=== PATIENT | male | born 1935 | race Caucasian/White ===

== ENCOUNTER → 2020-01-18 11:31 | Outpatient (CLI) | payer MEDICARE, OTHER, SELFPAY ==
--- NOTE | 2020-01-18 | DI.CT.S_ITS ---
PROCEDURE: CT ABDOMEN PELVIS WO/W CON INDICATIONS: GROSS HEMATURIA TECHNIQUE: Optional 5 mm thick noncontrast images acquired from the diaphragm to the symphysis pubis. After the administration of intravenous contrast, 5 mm thick images acquired from the diaphragm to the symphysis pubis after a 10-minute delay. 2 mm thick coronal and sagittal reformats were then performed of the kidneys and ureters. For radiation dose reduction, the following was used: automated exposure control, adjustment of mA and/or kV according to patient size. COMPARISON: None. FINDINGS: Image quality: Excellent. Lung bases: Lung bases are clear. Heart size is normal. Urinary system: Both kidneys are normal in size, without hydronephrosis or nephrolithiasis on pre-contrast images. No perinephric fat stranding. There is normal bilateral renal enhancement. Renal calyces appear normal in morphology when filled with contrast. Opacified portions of both ureters demonstrate normal caliber. Bladder wall thickness is normal. No calcified bladder stones. Note is made of several bilateral renal cortical cysts, each measuring water in radiodensity. No solid mass lesion is found. Other solid organs: Liver is normal in size and enhancement. Gallbladder contains a 1.9 cm peripherally calcified gallstone but there is no associated gallbladder inflammation or biliary obstruction.. Biliary system is non dilated. Pancreas enhances normally. Spleen is normal in size and enhancement. No adrenal nodules. Peritoneum and bowel: Bowel loops demonstrate normal wall thickness and caliber. No free fluid or air. Nodes and vessels: No retroperitoneal or mesenteric adenopathy by size criteria. Aorta and inferior vena cava are normal in size. Abdominal wall: No ventral hernias. Pelvis: No pathologic free pelvic fluid. No inguinal hernias or adenopathy. Bones: No suspicious bony lesions. No vertebral body compression fractures. IMPRESSION: A source of hematuria is not found. No urinary tract stone is seen. Several bilateral water density simple appearing renal cortical cysts are incidentally noted but a solid mass lesion within the renal cortex or a urothelial mass is not found. Followup by retrograde cystoscopy may be warranted at this time for more accurate assessment of the urothelium, however. Dictated by: Mikey Hernandez M.D. on 01/18/2020 at 13:37 Approved by: Mikey Hernandez M.D. on 01/18/2020 at 13:43
== END ==
PROVIDERS: Family Provider Family Medicine; PCP Physician Assistant Medical; Referring Provider Urology; Visit Provider Urology
DX: R31.0 Gross hematuria (principal); N28.1 Cyst of kidney, acquired
CPT/HCPCS: 74178; Q9967

== ENCOUNTER → 2020-03-21 10:44 | Outpatient (CLI) | payer MEDICARE, OTHER, SELFPAY ==
--- NOTE | 2020-03-21 | DI.NM.S_ITS ---
PROCEDURE: NM BONE SCAN WHOLE BODY RADIOPHARMACEUTICAL: 19.7 mCi Tc-99m MDP IV. INDICATIONS: Urothelial cancer TECHNIQUE: Delayed whole-body scintigrams were obtained approximately 3-4 hours after intravenous injection of radiotracer. Anterior and posterior views were acquired from vertex to feet. Additional left and right oblique views of the lower abdomen and pelvis were obtained. COMPARISON: [facility], CT, CT ABDOMEN PELVIS WO/W CON, 01/18/2020, 11:41. [facility], CT, CT CHEST W CON, 03/21/2020, 11:31. FINDINGS: Over the facial region centered on the nasal bones, ethmoid air cells and sphenoid sinus regions there is increased isotope deposition in a pattern suggestive of chronic sinusitis. 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 At the sternum, at approximately the junction of the middle and inferior thirds there is a transverse band of elevated isotope deposition which on review of prior CT scanning earlier today appears to represent potentially an insufficiency fracture rather than a site of osteolytic or blastic change. The urinary tract shows asymmetric right-sided hydronephrosis, not present on prior CT scanning from 01/18/20. More inferiorly hip joint, knee joint and ankle region degenerative osteoarthritic change can be seen. IMPRESSION: 1. Sinus CT scanning likely is warranted given the central isotope uptake abnormality noted in the paranasal sinuses area. Chronic sinusitis is a potential cause but acute sinusitis could be present also. The appearance is not suggestive of metastatic disease related to bladder carcinoma. 2. There is a transverse band of elevated isotope deposition focally within the lower sternum, in an area is included on CT scanning could be which has an appearance of insufficiency fracture and also does not show CT scanning evidence of an osteolytic or blastic lesion at that site. Please correlate for whether trauma has occurred in this area. Close clinical correlation should be directed to this region and if necessary a CT guided biopsy into the marrow space could be performed. 3. New finding of right-sided hydronephrosis, no left-sided hydronephrosis is seen. Please correlate for whether this could represent sequela of urological procedure, and if not this would represent a potential manifestation of interval growth of a bladder urothelial mass to produce an obstructed influence. Dictated by: Mikey Hernandez M.D. on 03/21/2020 at 16:57 Approved by: Mkiey Hernandez M.D. on 03/21/2020 at 17:08
--- NOTE | 2020-03-21 | DI.CT.S_ITS ---
PROCEDURE: CT CHEST W CON INDICATIONS: Urothelial cancer TECHNIQUE: After the administration of intravenous contrast, 5 mm thick sections acquired from the pulmonary apices to the posterior costophrenic angles. 1 mm axial lung, 5 mm thick coronal and sagittal reformats and 7 mm axial MIP were acquired. For radiation dose reduction, the following was used: automated exposure control, adjustment of mA and/or kV according to patient size. COMPARISON: , CT, CT ABDOMEN PELVIS WO/W CON, 01/18/2020, 11:41. FINDINGS: Image quality: Excellent. Lungs and pleura: No acute air space opacities. No pleural effusions or pneumothorax. Central and peripheral airways are patent and normal in caliber. Mediastinum: Heart size is normal. No pericardial effusion. No mediastinal or hilar adenopathy by size criteria. Thoracic aorta and central pulmonary arteries are normal in size. Esophagus is normal in caliber. No hiatal hernia. Bones and chest wall: No suspicious bony lesions. No vertebral body compression fractures. No axillary or supraclavicular adenopathy by size criteria. Thyroid gland appears normal where well seen. Abdomen: Visualized upper abdominal solid organs appear normal. Upper abdominal bowel loops are normal in caliber. IMPRESSION: No metastatic disease found. Note is again made of a peripherally calcified gallstone within the gallbladder lumen and several water density cysts involving the kidneys. Nuclear medicine bone scan imaging is also scheduled for today. Dictated by: Mikey Hernandez M.D. on 03/21/2020 at 12:00 Approved by: Mikey Hernandez M.D. on 03/21/2020 at 12:05
== END ==
PROVIDERS: Family Provider Family Medicine; PCP Physician Assistant Medical; Referring Provider Urology; Visit Provider Urology
DX: C67.9 Malignant neoplasm of bladder, unspecified (principal); K80.20 Calculus of gallbladder without cholecystitis without obstruction; N28.1 Cyst of kidney, acquired; M19.011 Primary osteoarthritis, right shoulder; M19.012 Primary osteoarthritis, left shoulder; N13.30 Unspecified hydronephrosis
CPT/HCPCS: 71260; 78306; A9503; Q9967